=== PATIENT | female | born 1990 | race Caucasian/White ===

== ENCOUNTER 2022-06-20 03:25 | Observation (INO) | payer BC ==
[~2022-06-20] VITALS: Ht 175.3 cm; Wt 99.8 kg
[2022-06-20] MEDS ORDERED: ONDANSETRON HCL 4MG/2ML INJ IV PRN (03:45)
[2022-06-20] MEDS ORDERED: LACTATED RINGERS 1,000 ML IV ONE (03:45)
[2022-06-20 06:03] LABS: CHLORIDE 104 mEq/L (98-107)
[2022-06-20 06:58] LABS: CLARITY URINE HAZY (CLEAR); COLOR URINE YELLOW (YELLOW); PROTEIN URINE 1+ (NEGATIVE); SPECIFIC GRAVITY URINE 1.026 (1.005-1.030)
[2022-06-20 06:59] LABS: KETONES URINE NEGATIVE (NEGATIVE); LEUKOCYTE ESTERASE URINE 2+ (NEGATIVE); NITRITE URINE NEGATIVE (NEGATIVE); OCCULT BLOOD URINE NEGATIVE (NEGATIVE)
[2022-06-20] MEDS ORDERED: CEFAZOLIN 2,000 MG in DEXT 5% WATER 100 ML IV SCH (07:15)
== END 2022-06-20 07:50 | disposition home or self-care (01) ==
LOC: 8 EST LDRP 03:25
PROVIDERS: ADMIT Obstetrics & Gynecology; ATTEND Obstetrics & Gynecology
DX: O21.2 Late vomiting of pregnancy (principal); Z3A.35 35 weeks gestation of pregnancy
CPT/HCPCS: 36415; 59025; 76805; 76818; 80053; 81003; 96365; 96375; G0378; J0690; J2405; J7060; 96360; 96361; 99281; J7120; G0379